=== PATIENT | male | born 1985 | race American Indian/Alaskan Native ===

== ENCOUNTER 2024-09-07 14:13 | Emergency (ER) | payer MEDICAID, SELFPAY ==
[2024-09-07 14:13] VITALS: BMI 25.8
[2024-09-07 14:22] VITALS: BP 150/87; PULSE 140; RESP 19; TEMP 37.4; O2SAT 95
--- NOTE | 2024-09-07 14:27 | PD.EDMEDCL ---
ED Medical Clearance RME/HPI General Chief complaint: General Adult/Misc Complain Stated complaint: MEDICAL CLEARANCE Time Seen by Provider: 09/07/24 14:22 Arrival date/time: 09/07/24 14:13 RME / HPI RME / HPI Narrative: 39 yo male patient brought in by PD for medical clearance due to elevated HR. Reported history of methamphetamine abuse Related Information Home Medications ?Medication ?Instructions ?Recorded ?Confirmed No Known Home Medications 09/16/23 09/16/23 Allergies Allergy/AdvReac Type Severity Reaction Status Date / Time No Known Allergies Allergy Verified 09/07/24 14:19 ED Exam Narrative Physical exam: GENERAL APPEARANCE: alert and oriented x 4, well-developed, well-nourished, no acute distress HEENT: Normocephalic, atraumatic LUNGS: No increased work of breathing, no respiratory distress HEART: Tachycardic rate, regular rhythm good peripheral perfusion ABDOMEN: non distended EXTREMITIES: atraumatic; no edema NEUROLOGIC: awake; alert and oriented x4; cranial nerves II-XII grossly intact PSYCHIATRIC: Slightly agitated SKIN: warm, dry, plethoric; no rashes Course Orders Category Date Time Status LORazepam [Ativan] Med 09/07/24 14:23 Discontinued 2 mg PO X1 ONE Vital Signs Vital signs: Vital Signs Temperature 99.4 F 09/07/24 14:22 Pulse Rate 140 H 09/07/24 14:22 Respiratory Rate 19 09/07/24 14:22 Blood Pressure 150/87 H 09/07/24 14:22 Pulse Oximetry (%) 95 09/07/24 14:22 Oxygen Delivery Method Room Air 09/07/24 14:22 Medical Clearance Medications / Prescriptions Medication administrations:: Medication Administration History Discontinued Medications Lorazepam (Lorazepam 0.5 Mg Tablet) 2 mg PO X1 ONE Stop: 09/07/24 14:24 Last Admin: 09/07/24 15:04 Dose: 2 mg Documented By: BD Discharge Plan Prescriptions/Referrals Prescriptions/Med Rec: No Action No Known Home Medications Referrals: No Primary/Family,Physician [Primary Care Provider] - In 1 week Patient/Caregiver Discharge Instructions Print Language: Vietnamese
[2024-09-07] MEDS: LORazepam 0.5 MG TABLET 2 MG PO (15:04)
== END 2024-09-07 16:47 | disposition left against medical advice (07) ==
PROVIDERS: Emergency Provider Emergency Medicine
DX: Z02.89 Encounter for other administrative examinations (principal); F15.10 Other stimulant abuse, uncomplicated; Z65.3 Problems related to other legal circumstances; Z53.29 Procedure and treatment not carried out because of patient's decision for other reasons
CPT/HCPCS: 99281; A9270